=== PATIENT | male | born 1990 | race Caucasian/White ===

== ENCOUNTER 2016-12-09 16:44 | Emergency (ER) | payer OTHER ==
[2016-12-09 16:54] VITALS: BP 139/81
--- NOTE | 2016-12-09 17:12 | ED Physician Documentation ---
PD HPI MALE - Stated complaint Stated Complaint: MALE - Chief complaint Chief Complaint: Abd Pain - History obtained from History obtained from: Patient - History of Present Illness Associated symptoms: No: Dysuria PD HPI MALE CONTRIB FACTORS: Sexually active Similar symptoms before: Has not had sx before - Additional information Additional information: The patient is a 26-year-old male who reports that the skin at the base of his penile shaft appears "more ashy than normal." He reports having unprotected heterosexual intercourse less than one week ago, and he is concerned about the possibility of a sexually transmitted disease. He denies dysuria, penile discharge, or any sores on his penile shaft. He denies history of similar symptoms in the past. Review of Systems Constitutional: denies: Fever Eyes: denies: Discharge Throat: denies: Sore throat Cardiac: denies: Chest pain / pressure Respiratory: denies: Dyspnea, Cough GI: denies: Abdominal Pain, Nausea, Vomiting, Diarrhea : denies: Dysuria, Hematuria, Discharge, Testicular pain, Testicular mass Skin: denies: Rash Musculoskeletal: denies: Neck pain, Back pain, Extremity pain Neurologic: denies: Headache PD PAST MEDICAL HISTORY - Past Medical History Past Medical History: No Endocrine/Autoimmune: None - Past Surgical History Past Surgical History: Yes - Present Medications Home Medications: Ambulatory Orders Medication Instructions Recorded Confirmed No Known Home Medications [No 12/09/16 12/09/16 Known Home Medications] - Allergies Allergies/Adverse Reactions: Allergies Allergy/AdvReac Type Severity Reaction Status Date / Time No Known Drug Allergies Allergy Verified 12/09/16 16:54 - Social History Does the pt smoke?: No Smoking Status: Never smoker Does the pt drink ETOH?: Yes Does the pt have substance abuse?: No - Immunizations Immunizations are current?: Yes PD ED PE NORMAL - Vitals Vital signs reviewed: (Borderline hypertension initially.) - General General: Alert and oriented X 3, Well developed/nourished - HEENT HEENT: Atraumatic, EOMI, Pharynx benign - Neck Neck: No adenopathy, No JVD - Cardiac Cardiac: RRR, No murmur - Respiratory Respiratory: No respiratory distress, Clear bilaterally - Abdomen Abdomen: Soft, Non tender, No organomegaly - Male Male : Other (There are no lesions detected on the penile shaft. There is no testicular or scrotal swelling, and no testicular tenderness to palpation.) - Back Back: No CVA TTP - Derm Derm: No rash - Extremities Extremities: No edema, No calf tenderness / cord - Neuro Neuro: Alert and oriented X 3, No motor deficit, No sensory deficit, Normal speech Results - Vitals Vitals: Oxygen O2 Source Room air - Labs Labs: Laboratory Tests 12/09/16 17:05 C.trachomatis RNA (TMA) NOT DETECTED Chlamydia/GC Comment SEE NOTE N.gonorrhoeae RNA (TMA) NOT DETECTED PD MEDICAL DECISION MAKING - ED course Complexity details: considered differential, d/w patient ED course: The patient presented with concern for possible STD after having unprotected sexual intercourse less than one week ago. There is no clinical evidence of ST the on examination. Urethral swab was obtained and sent to the lab for GC and chlamydia testing. I discussed with the patient and his male inpatient nursing aide follow- up for the test results, as well as potentially worrisome signs or symptoms that should prompt reevaluation in the emergency department. Departure - Departure Disposition: 01 Home, Self Care Clinical Impression: Possible exposure to STD Condition: Stable Instructions: ED Chlamydia GC Poss Culture Pend Follow-Up: GIOVANI Gottlieb [Provider Group] Comments: Followup for results of urethral swab culture within 5 days. The results should go to your primary physician. You can call here for results. If the results are positive we will call you. Discharge Date/Time: 12/09/16 17:15
== END 2016-12-09 17:15 | disposition home or self-care (01) ==
LOC: ED 16:44
DX: Z20.2 Contact with and (suspected) exposure to infections with a predominantly sexual mode of transmission (principal)
CPT/HCPCS: 87491; 87591; 99283

== ENCOUNTER 2019-11-11 10:48 | Emergency (ER) | payer OTHER ==
[2019-11-11 10:58] VITALS: BP 138/82
--- NOTE | 2019-11-11 10:59 | ED Physician Documentation ---
PD HPI OPHTHO - Stated complaint Stated Complaint: RT EYE PX - History obtained from History obtained from: Patient - History of Present Illness Timing - onset: How many days ago (5) Timing - duration: Days (5) Timing - details: Abrupt onset, Still present Location: Right (He noted onset 5 days ago of right eye redness, general irritation, watery and matting particularly in the mornings. No significant purulent discharge. He did not have any runny nose cough or other head cold symptoms. The left eye was normal. He was not aware of any foreign bodies. He continued with the symptoms. He had a telemedicine visit with his primary care provider 2 days ago who told him to continue [id number] Visine type eyedrops. The patient states he continued with the swelling and matting and discomfort and is here for evaluation. He denies visual loss. He does not wear contacts.) Associated symptoms: Redness, Swelling, Matting. No: Discharge, FB sensation, Decreased vision Contributing factors: Other (He has not had any genital symptoms. He has a new sexual partner but had not noted any notable discharge or such on his partner.). No: Exposed to conjunctivitis, Recent URI, FB, Wears contacts Similar symptoms before: Has not had sx before Review of Systems Constitutional: denies: Fever, Chills, Myalgias Eyes: denies: Photophobia Throat: denies: Oral lesions / sores, Sore throat : denies: Dysuria, Frequency PD PAST MEDICAL HISTORY - Past Medical History Endocrine/Autoimmune: None - Past Surgical History Past Surgical History: Yes - Present Medications Home Medications: Ambulatory Orders Medication Instructions Recorded Confirmed Diclofenac Sodium 2 drops RIGHTEYE QID 5 Days #1 11/11/19 bottle Erythromycin Base [Erythromycin 1 applic OP QID #3.5 oint...g. 11/11/19 Ophthalmic Ointment] Ketorolac 0.45% Ophth Drops 2 drops OPTH QID 5 Days #1 bottle 11/11/19 [Acuvail] - Allergies Allergies/Adverse Reactions: Allergies Allergy/AdvReac Type Severity Reaction Status Date / Time No Known Drug Allergies Allergy Verified 11/11/19 10:58 - Social History Does the pt smoke?: No Smoking Status: Never smoker Does the pt drink ETOH?: Yes Does the pt have substance abuse?: No - Immunizations Immunizations are current?: Yes PD ED PE NORMAL - Vitals Vital signs reviewed: Yes - General General: Alert and oriented X 3, Well developed/nourished - HEENT HEENT: PERRL, EOMI, Ears normal, Moist mucous membranes, Pharynx benign, Other (The right eyes shows hyperemia and some conjunctival swelling diffusely. There is some mild crusting at the edge of the lid eyelash margins. There is no copious discharge. Fluorescein staining did not show any ulcerative lesions. No foreign bodies are seen.) - Neck Neck: Supple, no meningeal sign, No adenopathy - Derm Derm: Normal color, Warm and dry, No rash Results - Vitals Vitals: Vital Signs - 24 hr 11/11/19 10:52 Temperature 36.9 C Heart Rate 57 L Respiratory 18 Rate Blood Pressure 138/82 H O2 Saturation 97 Oxygen O2 Source Room air - Labs Labs: Microbiology 11/11/19 11:24 Eye Culture - Preliminary Eye - Right PD MEDICAL DECISION MAKING - ED course Complexity details: considered differential (The persistence of this and isolated to the 1 I would sound less likely allergic or viral. Consider bacterial conjunctivitis. Considerations of this could be genital source so I did do a regular eye culture but also a STD screen off of the eye. He also requested we do screening for STDs off of a urine test.), d/w patient Departure - Departure Disposition: 01 Home, Self Care Clinical Impression: Conjunctivitis, acute Qualifiers: Acute conjunctivitis type: bacterial Laterality: right Qualified Code(s): H10.31 - Unspecified acute conjunctivitis, right eye Condition: Stable Record reviewed to determine appropriate education?: Yes Instructions: ED Conjunctivitis Bacterial Follow-Up: BHARATH SKINNER [Primary Care Provider] - Prescriptions: Diclofenac Sodium 2 drops RIGHTEYE QID 5 Days #1 bottle Erythromycin Base [Erythromycin Ophthalmic Ointment] 1 applic OP QID #3.5 oint...g. Ketorolac 0.45% Ophth Drops [Acuvail] 2 drops OPTH QID 5 Days #1 bottle Comments: Use the erythromycin antibiotic in the right eye 4 times a day and the diclofenac anti-inflammatory 4 times a day as well. You should be noninfectious after 24 hours on the medicine so okay to return to work on Tuesday. Recheck if not improved well over the next couple of days. The cultures from the eye and urine will result in 2 or 3 days and will call you with positive results. Discharge Date/Time: 11/11/19 12:02
[2019-11-11] MEDS ORDERED: ERYTHROMYCIN OPHTH OINT 1 GM TUBE RIGHTEYE STA (11:23)
== END 2019-11-11 12:02 | disposition home or self-care (01) ==
LOC: ED 10:48
DX: H10.31 Unspecified acute conjunctivitis, right eye (principal)
CPT/HCPCS: 81599; 87070; 87081; 99283; 99284; J3490; 87491; 87591; 87661

== ENCOUNTER 2019-11-12 19:45 | Emergency (ER) | payer OTHER ==
[2019-11-12 19:53] VITALS: BP 165/100
[2019-11-12] MEDS ORDERED: TOBRAM/DEXAMETH OPHTH DROPS 2.5 ML EACHEYE STA (20:01)
--- NOTE | 2019-11-12 20:05 | ED Physician Documentation ---
History of Present Illness - Stated complaint Stated Complaint: LT EYE REDNESS - Chief complaint Chief Complaint: Heent - History obtained from History obtained from: Patient - History of Present Illness Timing: Today (29-year-old gentleman presents now with a left eye that is red with some drainage. He was seen yesterday for the right eye being the same. He was put on erythromycin and topical NSAID. He is slowly improving but was advised to return if the left eye became involved. There is no visual deficit. He does not wear contacts. He had both STD testing and a eye culture done yesterday. Preliminarily the eye culture shows just skin tim. The STD testing is pending.) PD PAST MEDICAL HISTORY - Past Medical History Cardiovascular: Murmur Endocrine/Autoimmune: None - Past Surgical History Past Surgical History: Yes - Present Medications Home Medications: Ambulatory Orders Medication Instructions Recorded Confirmed Diclofenac Sodium 2 drops RIGHTEYE QID 5 Days #1 11/11/19 bottle Erythromycin Base [Erythromycin 1 applic OP QID #3.5 oint...g. 11/11/19 Ophthalmic Ointment] Ketorolac 0.45% Ophth Drops 2 drops OPTH QID 5 Days #1 bottle 11/11/19 [Acuvail] Tobramycin/Dexamethasone [Tobradex 1 drops OP QID 7 Days #1 drops.susp 11/12/19 Eye Drops] - Allergies Allergies/Adverse Reactions: Allergies Allergy/AdvReac Type Severity Reaction Status Date / Time No Known Drug Allergies Allergy Verified 11/12/19 19:49 - Social History Does the pt smoke?: No Smoking Status: Never smoker Does the pt drink ETOH?: Yes Does the pt have substance abuse?: No - Immunizations Immunizations are current?: Yes PD ED PE NORMAL - Vitals Vital signs reviewed: Yes - General General: Alert and oriented X 3, No acute distress - HEENT HEENT: EOMI, Other (Moderate right and mild left conjunctivitis with some clear drainage.) - Neck Neck: Supple, no meningeal sign, No bony TTP - Neuro Neuro: Alert and oriented X 3, Normal speech Results - Vitals Vitals: Vital Signs - 24 hr 11/12/19 19:49 Temperature 36.5 C Heart Rate 57 L Respiratory 16 Rate Blood Pressure 165/100 H O2 Saturation 99 Oxygen O2 Source Room air Departure - Departure Disposition: 01 Home, Self Care Clinical Impression: Conjunctivitis, acute Qualifiers: Acute conjunctivitis type: unspecified Laterality: bilateral Qualified Code(s): H10.33 - Unspecified acute conjunctivitis, bilateral Condition: Good Record reviewed to determine appropriate education?: Yes Instructions: ED Conjunctivitis Nonspecific Prescriptions: Tobramycin/Dexamethasone [Tobradex Eye Drops] 1 drops OP QID 7 Days #1 drops.susp Comments: [place] if not better Your blood pressure was elevated today on check into the emergency department. This does not mean that you have hypertension, it is a common phenomenon to come to the emergency department and have elevated blood pressure. I recommend that you see your primary care physician within the week to have it rechecked when you are feeling better. Forms: Activity restrictions
== END 2019-11-12 20:10 | disposition home or self-care (01) ==
LOC: ED 19:45
DX: H10.33 Unspecified acute conjunctivitis, bilateral (principal); R03.0 Elevated blood-pressure reading, without diagnosis of hypertension
CPT/HCPCS: 99281; 99282; A9270